=== PATIENT | male | born 1985 | race Caucasian/White ===

== ENCOUNTER 2020-05-09 06:17 | Emergency (ER) | payer OTHER ==
[~2020-05-09] VITALS: Ht 188 cm; Wt 154.8 kg
[2020-05-09 06:32] VITALS: BP 138/84; Ht 188 cm; Wt 154.8 kg
== END 2020-05-09 07:28 | disposition home or self-care (01) ==
LOC: ED 06:17
DX: S01.81XA Laceration without foreign body of other part of head, initial encounter (principal); W22.8XXA Striking against or struck by other objects, initial encounter; Y93.89 Activity, other specified; Y92.89 Other specified places as the place of occurrence of the external cause; Y99.8 Other external cause status
CPT/HCPCS: J2001